=== PATIENT | female | born 1970 | race African-American/Black ===

== ENCOUNTER → 2016-12-16 | Day surgery (SDC) | payer OTHER ==
[~2016-12-16] MED LIST: ALBUTEROL17 GM INH; AMLODIPINE BESY10 MG PO; ANTIVERT PO; CARAFATE1 GM PO; CIPRO PO; COMBIVENT U/D3 ML; ERYTHROMYCIN B500 MG PO; FLEXERIL10 MG PO; GERD MED; HCTZ; HCTZ PO; HYDROCHLOROTHIA25 MG PO; IBUPROFEN PO; IBUPROFEN800 MG PO; K-DUR10 MEQ PO; KCL PO; KLOR-CON 88 ME1; MICRO-K; MICRO-K PO; MOTRIN600 MG; NORVASC10 MG PO; OMEPRAZOLE20 M1 PO; OMEPRAZOLE40 M1 PO; POTASSIUM GLUC500 GM; PRILOSEC; PRILOSEC PO; PROVENTIL INH0.5 ML NEB; RONDEC DROPS30 ML PO; TYLENOL/CODEINE PO; Z-PACK PO
--- NOTE | ~2016-12-16 | OR ---
Unit #: [id number] #: [id number] Patient: INDER SMITH [id number] [address] [address] [id number] MR#: [id number] NAME: INDER SMITH ROOM: Date of Procedure: 12/16/2016 Admission Date: 12/16/2016 Surgeon: Murray Raymundo M.D. : 1970 Attending Physician: Murray Raymundo M.D. Primary Care Physician: [facility] OPERATIVE REPORT PROCEDURE PERFORMED Colonoscopy with biopsies. INDICATIONS FOR PROCEDURE The patient with chronic diarrhea, undergoing colonoscopy for evaluation. MEDICATIONS Monitored anesthesia. POSTOPERATIVE FINDINGS 1. Significant inflammation involving sigmoid colon, descending colon, as well as terminal ileum. Biopsies taken from this area. 2. Right side of the colon and rectum was spared. 3. Several pseudopolyp like lesions in the rectum just above the dentate line. Biopsies taken separately from this area. 4. Internal hemorrhoids. PLAN Follow up on pathology report. Further recommendations to follow. DESCRIPTION OF PROCEDURE The patient was explained of the procedure, risks, and benefits along with the risks and benefits of anesthesia. She was brought to the endoscopy room. Propofol anesthesia was given. Rectal exam was done, which was normal. Colonoscope was lubricated, passed up the rectum, advanced under direct vision all the way to the cecum. Cecum was identified by ileocecal valve and appendiceal orifice. Findings as described. Biopsies taken. Gently, I pulled the scope out of the patient's body. She tolerated it well. No major complications were seen. Dictated by... Carolyne Carbone/whit TD: 12/17/2016 00:55 JOB #: [id number] Unit #: [id number] #: [id number] Patient: INDER SMITH OPERATIVE REPORT X Murray Raymundo MD X PROCEDURE OPERATIVE NOTE
[2016-12-16 09:51] LABS: BASOPHIL# 0.1 X10e3 (0-0.3); BASOPHIL% 0.6 % (0-2.5); EOSINOPHIL# 0.2 X10e3 (0-0.7); EOSINOPHIL% 1.8 % (0.0-7.0); HEMATOCRIT 40.6 % (35.0-45.0); HEMOGLOBIN 13.2 gm/dL (12.0-16.0); LYMPHOCYTE% 27.6 % (17.0-45.0); MEAN CELL VOLUME 81.1 FL (83-96); MEAN CORPUSCULAR HEMOGLOBIN 26.3 PG (28-34); MEAN CORPUSCULAR HGB CONC 32.5 g/dL (30-36); MEAN PLATELET VOLUME 8.4 FL (6.5-11.5); MONOCYTE# 1.1 X10e3 (0-1.0); MONOCYTE% 10.1 % (3.0-12.0); NEUTROPHIL# 6.6 X10e3 (1.5-7.1); NEUTROPHIL% 59.9 % (40-75); PLATELET COUNT 224 X10e3 (140-420); RED BLOOD COUNT 5.01 X10e (3.90-5.30); RED CELL DISTRIBUTION WIDTH 15.7 % (11.0-15.5)
[2016-12-16 09:54] LABS: DIFF IND NO
[2016-12-16 10:14] LABS: ALBUMIN SERUM 4.3 g/dL (3.5-5.0); ALKALINE PHOSPHATASE 79 U/L (32-92); ALT (SGPT) 45 U/L (10-40); AST (SGOT) 59 U/L (10-42); BILIRUBIN,TOTAL 1.3 mg/dL (0.2-2.0); BLOOD UREA NITROGEN 10 mg/dL (9-23); BUN/CREATININE RATIO 14.28; CALCIUM SERUM 9.5 mg/dL (8.4-10.2); CARBON DIOXIDE 27 mmol/L (22-31); CHLORIDE 101 mmol/L (100-111); CREATININE SERUM 0.7 mg/dL (0.6-1.4); GLOM FILT RATE Estimated ABOVE60 mL/min (>60); GLUCOSE FASTING 119 mg/dL (70-110); POTASSIUM 3.3 mmol/L (3.5-5.1); PROTEIN TOTAL SERUM 7.2 g/dL (6.0-8.3); SODIUM 138 mmol/L (135-145)
== END | disposition home or self-care (01) ==
LOC: COPS 07:37
PROVIDERS: Internal Medicine
DX: K52.9 Noninfective gastroenteritis and colitis, unspecified (principal); K64.8 Other hemorrhoids; K62.89 Other specified diseases of anus and rectum; I10 Essential (primary) hypertension; J44.9 Chronic obstructive pulmonary disease, unspecified; K21.9 Gastro-esophageal reflux disease without esophagitis; F17.210 Nicotine dependence, cigarettes, uncomplicated; Z87.01 Personal history of pneumonia (recurrent); Z88.8 Allergy status to other drugs, medicaments and biological substances; Z91.018 Allergy to other foods; Z79.899 Other long term (current) drug therapy; Z98.890 Other specified postprocedural states
CPT/HCPCS: 80053; 84703; 85025; 86140; 88305; J2250

== ENCOUNTER → 2017-03-10 | Outpatient (CLI) | payer OTHER ==
[2017-03-10 14:53] LABS: ALBUMIN SERUM 4.5 g/dL (3.5-5.0); BILIRUBIN,TOTAL 0.5 mg/dL (0.2-2.0); BUN/CREATININE RATIO 22.85; CALCIUM SERUM 10.4 mg/dL (8.4-10.2); CREATININE SERUM 0.7 mg/dL (0.6-1.4); GLOM FILT RATE Estimated 121.3 mL/min (>60); POTASSIUM 3.3 mmol/L (3.5-5.1); PROTEIN TOTAL SERUM 7.3 g/dL (6.0-8.3)
[2017-03-10 14:55] LABS: HEMATOCRIT 44.2 % (35.0-45.0); HEMOGLOBIN 14.2 gm/dL (12.0-16.0); MEAN CELL VOLUME 83.2 FL (83-96); MEAN CORPUSCULAR HEMOGLOBIN 26.7 PG (28-34); MEAN CORPUSCULAR HGB CONC 32.1 g/dL (30-36); RED BLOOD COUNT 5.32 X10e (3.90-5.30); RED CELL DISTRIBUTION WIDTH 15.9 % (11.0-15.5)
== END | disposition home or self-care (01) ==
LOC: CLAB 13:15
PROVIDERS: Internal Medicine
DX: K52.9 Noninfective gastroenteritis and colitis, unspecified (principal)
CPT/HCPCS: 36415; 80053; 85027